=== PATIENT | female | born 1985 | race Caucasian/White ===

== ENCOUNTER 2020-10-06 21:59 | Emergency (ER) | payer OTHER ==
[~2020-10-06] VITALS: Ht 172.7 cm; Wt 98.2 kg
[2020-10-06 22:04] VITALS: BP 108/56
[2020-10-06] MEDS ORDERED: AMOXICILLIN/CLAV 875-125MG TABLET ONE (23:23)
[2020-10-06] MEDS ORDERED: AMOXICILLIN/CLAV 875-125MG TABLET PO ONE (23:30)
== END 2020-10-06 23:35 | disposition home or self-care (01) ==
LOC: ED 23:14
DX: S61.552A Open bite of left wrist, initial encounter (principal); W55.01XA Bitten by cat, initial encounter; Y93.89 Activity, other specified; Y92.009 Unspecified place in unspecified non-institutional (private) residence as the place of occurrence of the external cause; Y99.8 Other external cause status
CPT/HCPCS: 99283